=== PATIENT | male | born 1980 | race Two or more races ===

== ENCOUNTER 2017-06-07 20:16 | Emergency (ER) | payer MEDICAID ==
[~2017-06-07] VITALS: Ht 170.2 cm; Wt 63.5 kg
[2017-06-07 20:23] VITALS: BP 122/78
[2017-06-07] MEDS ORDERED: IBUPROFEN 600 MG TABLET PO ONE ×2 (21:23→21:30)
== END 2017-06-07 21:37 | disposition home or self-care (01) ==
LOC: ER 20:19
DX: J11.1 Influenza due to unidentified influenza virus with other respiratory manifestations (principal); F17.210 Nicotine dependence, cigarettes, uncomplicated
CPT/HCPCS: A4606; Z7610